=== PATIENT | male | born 1990 | race Caucasian/White ===

== ENCOUNTER 2016-11-30 19:19 | Emergency (ER) | payer SELFPAY ==
[~2016-11-30] VITALS: Ht 172.7 cm; Wt 64.3 kg
[~2016-11-30 19:19] MED LIST: ALBUTEROL MDI; AZIT250T PO; BENZ100C PO; ESCI5TAB7 PO; GUAI-44 PO; PRED-165 PO
[2016-11-30 19:22] VITALS: BP 106/70
[2016-11-30] MEDS ORDERED: FLUORESCEIN OPHTHALMIC 1 MG STRIP EACHEYE ONE (20:00)
[2016-11-30] MEDS ORDERED: PROPARACAINE OPHTH 0.5%, 15ML EACHEYE ONE (20:00)
[2016-11-30] MEDS ORDERED: FLUORESCEIN OPHTHALMIC 1 MG STRIP ONE (20:15)
[2016-11-30] MEDS ORDERED: PROPARACAINE OPHTH 0.5%, 15ML ONE (20:16)
== END 2016-11-30 21:08 | disposition home or self-care (01) ==
LOC: ED 21:00
DX: H10.021 Other mucopurulent conjunctivitis, right eye (principal); H16.011 Central corneal ulcer, right eye
CPT/HCPCS: 99283

== ENCOUNTER 2017-04-07 19:21 | Emergency (ER) | payer SELFPAY ==
[~2017-04-07] VITALS: Ht 172.7 cm; Wt 63.8 kg
[~2017-04-07 19:21] MED LIST changes: +GUAI-105 PO; -GUAI-44 PO
[2017-04-07 19:22] VITALS: BP 112/67
[2017-04-07] MEDS ORDERED: DIPH,PERTUSS(ACELL),TET VAC/PF 0.5 ML IM-VACC ONE ×2 (19:30→19:49)
== END 2017-04-07 20:20 | disposition home or self-care (01) ==
LOC: ED 20:14
DX: S61.011A Laceration without foreign body of right thumb without damage to nail, initial encounter (principal); W45.8XXA Other foreign body or object entering through skin, initial encounter; Y93.89 Activity, other specified; Y92.69 Other specified industrial and construction area as the place of occurrence of the external cause; Y99.0 Civilian activity done for income or pay
CPT/HCPCS: 12001; 90471; 90715

== ENCOUNTER 2017-08-31 17:43 | Emergency (ER) | payer BC ==
[~2017-08-31] VITALS: Ht 172.7 cm; Wt 64.1 kg
[~2017-08-31 17:43] MED LIST changes: -GUAI-105 PO; +GUAI-106 PO
[2017-08-31 17:54] VITALS: BP 121/71
[2017-08-31] MEDS ORDERED: HYDROcodone/APAP 5/325 TABLET PO STA (18:52)
[2017-08-31] MEDS ORDERED: HYDROcodone/APAP 5/325 TABLET ONE (18:57)
== END 2017-08-31 19:02 | disposition home or self-care (01) ==
LOC: ED 18:56
DX: S83.411A Sprain of medial collateral ligament of right knee, initial encounter (principal); S83.421A Sprain of lateral collateral ligament of right knee, initial encounter; W22.8XXA Striking against or struck by other objects, initial encounter; Y93.89 Activity, other specified; Y92.89 Other specified places as the place of occurrence of the external cause; Y99.8 Other external cause status
CPT/HCPCS: 99284

== ENCOUNTER 2017-09-12 00:39 | Emergency (ER) | payer BC ==
[~2017-09-12] VITALS: Ht 172.7 cm; Wt 66.7 kg
[2017-09-12 00:40] VITALS: BP 114/70
[2017-09-12] MEDS ORDERED: ACETAMINOPHEN 500 MG TABLET ONE (01:28)
[2017-09-12] MEDS ORDERED: ACETAMINOPHEN 325 MG TABLET PO ONE (01:30)
[2017-09-12] MEDS ORDERED: ACETAMINOPHEN 500 MG TABLET PO ONE (01:30)
== END 2017-09-12 01:46 | disposition home or self-care (01) ==
LOC: ED 00:57
DX: S80.01XA Contusion of right knee, initial encounter (principal); F32.9 Major depressive disorder, single episode, unspecified; X58.XXXA Exposure to other specified factors, initial encounter; Y93.01 Activity, walking, marching and hiking; Y99.8 Other external cause status; Y92.89 Other specified places as the place of occurrence of the external cause
CPT/HCPCS: 99282